=== PATIENT | female | born 1930 | race Caucasian/White ===

== ENCOUNTER → 2017-02-28 | Outpatient (CLI) | payer MEDICARE ==
[2015-03-16 07:50] VITALS: BP 129/66
[~2017-02-28] MED LIST: ALPR0.257 PO; ALPR0.5T10 PO; AMLO5TAB2 PO; ASPI-482 PO; CRESTOR40 MG PO; EZET10TA18 PO; FENO54TA PO; MESA800T2 PO; METO-247 PO; METO1TAB7 PO; OMEP20CA9 PO; POTA20PA21 PO; SERT25TA4 PO; TRIA1CAP13 PO
--- NOTE | 2017-02-28 09:38 | RAD ---
Abdominal ultrasound, 02/28/2017: History: Nausea The gallbladder is within normal limits in size. There is no sonographic evidence of cholelithiasis. The gallbladder tyler are not thickened. The common hepatic duct measures 5-6 mm. There is no evidence of a hepatic mass. The pancreas was partially obscured by overlying bowel. The pancreatic duct is at the upper limits of normal in size. No pancreatic mass is seen. The spleen is unremarkable. There are 2 cysts in the left kidney with the largest of these measuring 3.9 cm. The kidneys show no evidence of obstruction. There is atherosclerotic plaquing of the abdominal aorta. There is mild dilatation of the infrarenal abdominal aorta which measures approximately 3.1 cm in greatest width. It was better demonstrated on the previous CT study of 04/22/2015 which demonstrated a focal left anterolateral bulge in the infrarenal abdominal aorta of similar size. The inferior vena cava is unremarkable. No free fluid is evident in the abdomen. IMPRESSION: 1. Aortic atherosclerosis with mild aneurysmal dilatation of the infrarenal abdominal aorta. 2. Left renal cysts. 3. No acute abdominal abnormality is detected.
== END | disposition home or self-care (01) ==
LOC: US 07:08
PROVIDERS: ATTEND Internal Medicine Gastroenterology
DX: I71.4 Abdominal aortic aneurysm, without rupture (principal); N28.1 Cyst of kidney, acquired
CPT/HCPCS: 76700